=== PATIENT | male | born 1980 | race African-American/Black ===

== ENCOUNTER → 2016-11-27 | Outpatient (CLI) | payer MEDICAID ==
[2016-11-27 09:56] LABS: ABSOLUTE EOSINOPHILS # (AUTO) 0.4 10^3/uL (0.0-0.6); ABSOLUTE LYMPHOCYTES (AUTO) 2.7 10^3/uL (0.5-4.7); ABSOLUTE MONOCYTES (AUTO) 0.7 10^3/uL (0.1-1.4); ABSOLUTE NEUT (AUTO) 5.4 10^3/uL (1.7-8.2); BASOPHILS % (AUTO) 0.3 % (0-2); EOSINOPHILS % (AUTO) 4.1 % (0-6); HEMATOCRIT 44.4 % (37.9-51.0); HEMOGLOBIN 14.3 g/dL (13.5-17.0); HGB HCT DIFFERENCE -1.5; LYMPHOCYTES % (AUTO) 29.1 % (13-45); MEAN CORPUSCULAR HEMOGLOBIN 24.7 pg (27.0-33.4); MEAN CORPUSCULAR HGB CONC 32.1 g/dL (32.0-36.0); MEAN CORPUSCULAR VOLUME 77 fl (80-97); MONOCYTES % (AUTO) 7.3 % (3-13); RED BLOOD COUNT 5.77 10^6/uL (4.35-5.55); RED CELL DISTRIBUTION WIDTH 14.5 % (11.5-14.0); SEGMENTED NEUTROPHILS % (AUTO) 59.2 % (42-78); WHITE BLOOD COUNT 9.2 10^3/uL (4.0-10.5)
[2016-11-27 09:56] LABS: APPEARANCE,URINE CLEAR; BILIRUBIN,URINE NEGATIVE (NEGATIVE); GLUCOSE, URINE NEGATIVE (NEGATIVE); KETONES,URINE TRACE mg/dL (NEGATIVE); LEUKOCYTE ESTERASE,URINE NEGATIVE (NEGATIVE); NITRITE,URINE NEGATIVE (NEGATIVE); PROTEIN,URINE NEGATIVE (NEGATIVE); URINE SPECIFIC GRAVITY 1.013; UROBILINOGEN,URINE NEGATIVE mg/dL (<2.0)
[2016-11-27 10:18] LABS: ALANINE AMINOTRANSFERASE 87 U/L (21-72); ALBUMIN 4.6 g/dL (3.5-5.0); ALKALINE PHOSPHATASE 84 U/L (38-126); ANION GAP 14 (5-19); ASPARTATE AMINO TRANSFERASE 40 U/L (17-59); BILIRUBIN,TOTAL 0.7 mg/dL (0.2-1.3); BLOOD UREA NITROGEN 15 mg/dL (7-20); CALCIUM 9.5 mg/dL (8.4-10.2); CARBON DIOXIDE 25 mmol/L (22-30); CHLORIDE 104 mmol/L (98-107); CHOLESTEROL 111.09 mg/dL (0-200); CREATININE RESULT 1.02 mg/dL (0.52-1.25); Direct HDL 27 mg/dL (>40); GLUCOSE 191 mg/dL (75-110); PHOSPHORUS 3.9 mg/dL (2.5-4.5); POTASSIUM 4.8 mmol/L (3.6-5.0); SODIUM 143.4 mmol/L (137-145); TOTAL PROTEIN 7.7 g/dL (6.3-8.2); TRIGLYCERIDES 92 mg/dL (<150)
[2016-11-27 10:29] LABS: DIRECT LDL 68 mg/dL (<100)
== END ==
LOC: OD 08:29
DX: R06.02 Shortness of breath (principal); Z51.81 Encounter for therapeutic drug level monitoring; D57.3 Sickle-cell trait; E03.9 Hypothyroidism, unspecified
CPT/HCPCS: 36415; 71020; 80053; 80061; 81001; 82652; 83036; 83970; 84100; 84443; 85025; 85660

== ENCOUNTER → 2016-12-31 | Outpatient (CLI) | payer MEDICAID | LOC: OD 08:36 | DX: K75.9 Inflammatory liver disease, unspecified (principal) | CPT/HCPCS: 36415; 80074 ==

== ENCOUNTER → 2017-05-27 | Outpatient (CLI) | payer MEDICAID ==
[2017-05-27 08:51] LABS: ABSOLUTE BASOPHILS # (AUTO) 0.1 10^3/uL (0.0-0.2); ABSOLUTE EOSINOPHILS # (AUTO) 0.2 10^3/uL (0.0-0.6); ABSOLUTE LYMPHOCYTES (AUTO) 1.9 10^3/uL (0.5-4.7); ABSOLUTE MONOCYTES (AUTO) 0.7 10^3/uL (0.1-1.4); ABSOLUTE NEUT (AUTO) 7.6 10^3/uL (1.7-8.2); BASOPHILS % (AUTO) 0.5 % (0-2); EOSINOPHILS % (AUTO) 1.6 % (0-6); HEMATOCRIT 41.9 % (37.9-51.0); HEMOGLOBIN 13.9 g/dL (13.5-17.0); HGB HCT DIFFERENCE -0.2; LYMPHOCYTES % (AUTO) 18.2 % (13-45); MEAN CORPUSCULAR HEMOGLOBIN 25.5 pg (27.0-33.4); MEAN CORPUSCULAR HGB CONC 33.3 g/dL (32.0-36.0); MEAN CORPUSCULAR VOLUME 77 fl (80-97); MONOCYTES % (AUTO) 6.5 % (3-13); RED BLOOD COUNT 5.46 10^6/uL (4.35-5.55); RED CELL DISTRIBUTION WIDTH 14.7 % (11.5-14.0); SEGMENTED NEUTROPHILS % (AUTO) 73.2 % (42-78); WHITE BLOOD COUNT 10.4 10^3/uL (4.0-10.5)
[2017-05-27 09:16] LABS: ALANINE AMINOTRANSFERASE 68 U/L (21-72); ALBUMIN 4.6 g/dL (3.5-5.0); ALKALINE PHOSPHATASE 89 U/L (38-126); ANION GAP 16 (5-19); ASPARTATE AMINO TRANSFERASE 32 U/L (17-59); BILIRUBIN,DIRECT 0.4 mg/dL (0.0-0.4); BILIRUBIN,TOTAL 0.6 mg/dL (0.2-1.3); BLOOD UREA NITROGEN 14 mg/dL (7-20); CALCIUM 9.8 mg/dL (8.4-10.2); CARBON DIOXIDE 26 mmol/L (22-30); CHLORIDE 103 mmol/L (98-107); CREATININE RESULT 1.04 mg/dL (0.52-1.25); Direct HDL 35 mg/dL (>40); GLUCOSE 130 mg/dL (75-110); POTASSIUM 4.5 mmol/L (3.6-5.0); SODIUM 144.7 mmol/L (137-145); TRIGLYCERIDES 88 mg/dL (<150)
[2017-05-27 09:27] LABS: DIRECT LDL 88 mg/dL (<100)
[2017-05-28 10:38] LABS: CREATININE URINE 232.3 mg/dL (Not Estab.); MICROALBUMIN URINE 23.3 ug/mL (Not Estab.)
== END ==
LOC: OD 07:46
PROVIDERS: ATTEND Family Medicine Geriatric Medicine
DX: E03.9 Hypothyroidism, unspecified (principal); E11.9 Type 2 diabetes mellitus without complications; R74.8 Abnormal levels of other serum enzymes; E78.5 Hyperlipidemia, unspecified; E55.9 Vitamin D deficiency, unspecified; Z79.899 Other long term (current) drug therapy
CPT/HCPCS: 36415; 80053; 80061; 82043; 82306; 82570; 83036; 84443; 85025

== ENCOUNTER → 2017-07-08 | Outpatient (CLI) | payer MEDICAID ==
[2017-07-08 08:26] LABS: ABSOLUTE BASOPHILS # (AUTO) 0.1 10^3/uL (0.0-0.2); ABSOLUTE EOSINOPHILS # (AUTO) 0.3 10^3/uL (0.0-0.6); ABSOLUTE LYMPHOCYTES (AUTO) 2.5 10^3/uL (0.5-4.7); ABSOLUTE MONOCYTES (AUTO) 0.9 10^3/uL (0.1-1.4); ABSOLUTE NEUT (AUTO) 7.2 10^3/uL (1.7-8.2); BASOPHILS % (AUTO) 0.5 % (0-2); EOSINOPHILS % (AUTO) 2.5 % (0-6); HEMATOCRIT 44.2 % (37.9-51.0); HEMOGLOBIN 14.3 g/dL (13.5-17.0); HGB HCT DIFFERENCE -1.3; LYMPHOCYTES % (AUTO) 22.9 % (13-45); MEAN CORPUSCULAR HEMOGLOBIN 25.4 pg (27.0-33.4); MEAN CORPUSCULAR HGB CONC 32.4 g/dL (32.0-36.0); MEAN CORPUSCULAR VOLUME 78 fl (80-97); MONOCYTES % (AUTO) 7.8 % (3-13); RED BLOOD COUNT 5.64 10^6/uL (4.35-5.55); RED CELL DISTRIBUTION WIDTH 14.6 % (11.5-14.0); SEGMENTED NEUTROPHILS % (AUTO) 66.3 % (42-78); WHITE BLOOD COUNT 10.9 10^3/uL (4.0-10.5)
[2017-07-09 11:40] LABS: CREATININE URINE 195.2 mg/dL (Not Estab.); MICROALBUMIN URINE 8.6 ug/mL (Not Estab.)
== END ==
LOC: OD 07:07
PROVIDERS: ATTEND Family Medicine Geriatric Medicine
DX: E11.9 Type 2 diabetes mellitus without complications (principal); E03.9 Hypothyroidism, unspecified; Z79.899 Other long term (current) drug therapy
CPT/HCPCS: 36415; 82043; 82570; 83036; 85025

== ENCOUNTER → 2017-08-09 | Outpatient (CLI) | payer MEDICAID ==
[2017-08-09 08:29] LABS: ABSOLUTE BASOPHILS # (AUTO) 0.1 10^3/uL (0.0-0.2); ABSOLUTE EOSINOPHILS # (AUTO) 0.1 10^3/uL (0.0-0.6); ABSOLUTE LYMPHOCYTES (AUTO) 1.5 10^3/uL (0.5-4.7); ABSOLUTE MONOCYTES (AUTO) 0.6 10^3/uL (0.1-1.4); ABSOLUTE NEUT (AUTO) 5.7 10^3/uL (1.7-8.2); BASOPHILS % (AUTO) 0.7 % (0-2); EOSINOPHILS % (AUTO) 1.7 % (0-6); HEMATOCRIT 42.4 % (37.9-51.0); HEMOGLOBIN 14.3 g/dL (13.5-17.0); HGB HCT DIFFERENCE 0.5; LYMPHOCYTES % (AUTO) 18.3 % (13-45); MEAN CORPUSCULAR HEMOGLOBIN 25.8 pg (27.0-33.4); MEAN CORPUSCULAR HGB CONC 33.8 g/dL (32.0-36.0); MEAN CORPUSCULAR VOLUME 76 fl (80-97); MONOCYTES % (AUTO) 7.4 % (3-13); RED BLOOD COUNT 5.55 10^6/uL (4.35-5.55); RED CELL DISTRIBUTION WIDTH 14.9 % (11.5-14.0); SEGMENTED NEUTROPHILS % (AUTO) 71.9 % (42-78)
== END ==
LOC: OD 07:02
PROVIDERS: ATTEND Family Medicine Geriatric Medicine
DX: D72.829 Elevated white blood cell count, unspecified (principal)
CPT/HCPCS: 36415; 85025

== ENCOUNTER → 2018-01-13 | Outpatient (CLI) | payer MEDICAID ==
[2018-01-13 10:10] LABS: ABSOLUTE BASOPHILS # (AUTO) 0.1 10^3/uL (0.0-0.2); ABSOLUTE EOSINOPHILS # (AUTO) 0.3 10^3/uL (0.0-0.6); ABSOLUTE LYMPHOCYTES (AUTO) 2.5 10^3/uL (0.5-4.7); ABSOLUTE MONOCYTES (AUTO) 0.8 10^3/uL (0.1-1.4); ABSOLUTE NEUT (AUTO) 6.2 10^3/uL (1.7-8.2); BASOPHILS % (AUTO) 0.7 % (0-2); EOSINOPHILS % (AUTO) 3.1 % (0-6); HEMATOCRIT 43.9 % (37.9-51.0); HEMOGLOBIN 14.4 g/dL (13.5-17.0); MEAN CORPUSCULAR HEMOGLOBIN 25.1 pg (27.0-33.4); MEAN CORPUSCULAR HGB CONC 32.8 g/dL (32.0-36.0); MEAN CORPUSCULAR VOLUME 76 fl (80-97); MONOCYTES % (AUTO) 8.5 % (3-13); PLATELET COUNT 456 10^3/uL (150-450); RED BLOOD COUNT 5.75 10^6/uL (4.35-5.55); SEGMENTED NEUTROPHILS % (AUTO) 62.7 % (42-78); TOTAL CELLS COUNTED % (AUTO) 100 %; WHITE BLOOD COUNT 9.9 10^3/uL (4.0-10.5)
[2018-01-13 10:42] LABS: ALANINE AMINOTRANSFERASE 45 U/L (21-72); ANION GAP 11 (5-19); ASPARTATE AMINO TRANSFERASE 21 U/L (17-59); BLOOD UREA NITROGEN 13 mg/dL (7-20); CALCIUM 10.1 mg/dL (8.4-10.2); CARBON DIOXIDE 29 mmol/L (22-30); CHLORIDE 102 mmol/L (98-107); CHOLESTEROL 147.11 mg/dL (0-200); GLUCOSE 120 mg/dL (75-110); POTASSIUM 4.7 mmol/L (3.6-5.0); SODIUM 141.8 mmol/L (137-145); TRIGLYCERIDES 67 mg/dL (<150)
[2018-01-13 10:54] LABS: DIRECT LDL 97 mg/dL (<100)
[2018-01-14 12:39] LABS: CREATININE URINE 133.9 mg/dL (Not Estab.); MICROALBUMIN URINE <3.0 ug/mL (Not Estab.)
== END ==
LOC: OD 08:29
PROVIDERS: ATTEND Family Medicine Geriatric Medicine
DX: E03.9 Hypothyroidism, unspecified (principal); E11.9 Type 2 diabetes mellitus without complications; E78.5 Hyperlipidemia, unspecified; D57.3 Sickle-cell trait; D72.829 Elevated white blood cell count, unspecified
CPT/HCPCS: 36415; 80048; 80061; 82043; 82570; 83036; 84443; 84450; 84460; 85025

== ENCOUNTER → 2018-03-03 | Outpatient (CLI) | payer MEDICAID ==
--- NOTE | 2018-03-03 15:00 | RADIOLOGY REPORT (SQ) ---
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 TECHNIQUE: Multiplanar imaging includes noncontrasted T1, T2, FLAIR, diffusion with ADC map and post gadolinium contrast T1 sequences. Images stored on PACS. Additional thin section imaging through the orbits was performed including axial and coronal fat-sat T2, axial and coronal T1 precontrast and T1 fat-sat postcontrast imaging to include the optic nerves and globes. CONTRAST TYPE AND DOSE: 20 mL Multihance. RENAL FUNCTION: GFR > 60. LIMITATIONS: None. FINDINGS: ANATOMY: No developmental anomalies. Normal vascular flow voids. Pituitary fossa normal. CSF SPACES: Normal in size and contour. No hemorrhage. CEREBRUM AND CEREBELLUM: Extensive white matter lesions are present diagnostic for demyelinating dise ase. These involve the left middle cerebellar peduncle, posterior left mario, right cerebellar white matter, bilateral temporal frontal parietal and occipital white matter, and corpus callosum. There is no MR evidence of acute ischemic change, acute intracranial hemorrhage, mass effect or shift . No abnormal contrast enhancement. Cerebellopontine angles, internal auditory canals, and inner ear structures are unremarkable. DIFFUSION IMAGING: Negative for acute or subacute infarction. ORBITS: There is optic nerve atrophy on the right side, with mild increased right optic nerve intrins ic signal from demyelinating disease. Left optic nerve unremarkable. Globes are symmetric in size, no proptosis. No intra or extraconal orbital masses or enhancement. PARANASAL SINUSES: No fluid levels. Mucosa normal. OTHER: No other significant finding. IMPRESSION: Multiple sclerosis with fairly heavy plaque burden throughout the brain parenchyma. 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 TECHNICAL DOCUMENTATION: JOB ID: [id number] [employer]- All Rights Reserved Reading location - IP/workstation name: [facility]
== END ==
LOC: RAD 10:03
PROVIDERS: ATTEND Ophthalmology
DX: H47.211 Primary optic atrophy, right eye (principal)
CPT/HCPCS: 70553; A9577

== ENCOUNTER → 2018-10-20 | Outpatient (CLI) | payer MEDICAID ==
[2018-10-20 09:52] LABS: ABSOLUTE BASOPHILS # (AUTO) 0.1 10^3/uL (0.0-0.2); ABSOLUTE EOSINOPHILS # (AUTO) 0.4 10^3/uL (0.0-0.6); ABSOLUTE LYMPHOCYTES (AUTO) 2.5 10^3/uL (0.5-4.7); ABSOLUTE MONOCYTES (AUTO) 0.9 10^3/uL (0.1-1.4); ABSOLUTE NEUT (AUTO) 7.1 10^3/uL (1.7-8.2); BASOPHILS % (AUTO) 0.9 % (0-2); EOSINOPHILS % (AUTO) 3.3 % (0-6); HEMATOCRIT 42.1 % (37.9-51.0); HEMOGLOBIN 14.1 g/dL (13.5-17.0); LYMPHOCYTES % (AUTO) 22.8 % (13-45); MEAN CORPUSCULAR HEMOGLOBIN 25.6 pg (27.0-33.4); MEAN CORPUSCULAR HGB CONC 33.6 g/dL (32.0-36.0); MEAN CORPUSCULAR VOLUME 76 fl (80-97); PLATELET COUNT 411 10^3/uL (150-450); RED BLOOD COUNT 5.51 10^6/uL (4.35-5.55); RED CELL DISTRIBUTION WIDTH 14.2 % (11.5-14.0); TOTAL CELLS COUNTED % (AUTO) 100 %; WHITE BLOOD COUNT 10.9 10^3/uL (4.0-10.5)
[2018-10-20 10:02] LABS: ALANINE AMINOTRANSFERASE 30 U/L (21-72); ALBUMIN 4.2 g/dL (3.5-5.0); ALKALINE PHOSPHATASE 78 U/L (38-126); ANION GAP 10 (5-19); ASPARTATE AMINO TRANSFERASE 19 U/L (17-59); BILIRUBIN,DIRECT 0.2 mg/dL (0.0-0.4); BILIRUBIN,TOTAL 0.6 mg/dL (0.2-1.3); BLOOD UREA NITROGEN 14 mg/dL (7-20); CALCIUM 9.6 mg/dL (8.4-10.2); CARBON DIOXIDE 28 mmol/L (22-30); CHLORIDE 103 mmol/L (98-107); GLUCOSE 130 mg/dL (75-110); POTASSIUM 4.2 mmol/L (3.6-5.0); SODIUM 141.4 mmol/L (137-145); TOTAL PROTEIN 7.4 g/dL (6.3-8.2); TRIGLYCERIDES 64 mg/dL (<150)
[2018-10-20 10:13] LABS: DIRECT LDL 75 mg/dL (<100)
[2018-10-21 12:38] LABS: CREATININE URINE 166.2 mg/dL (Not Estab.); MICROALBUMIN URINE 3.7 ug/mL (Not Estab.)
== END ==
LOC: OD 08:51
PROVIDERS: ATTEND Family Medicine Geriatric Medicine
DX: E03.9 Hypothyroidism, unspecified (principal); E11.9 Type 2 diabetes mellitus without complications; E78.5 Hyperlipidemia, unspecified
CPT/HCPCS: 36415; 80053; 80061; 82043; 82570; 83036; 84443; 85025

== ENCOUNTER → 2018-10-27 | Outpatient (CLI) | payer MEDICAID ==
[2018-10-27 10:36] LABS: ABSOLUTE BASOPHILS # (AUTO) 0.1 10^3/uL (0.0-0.2); ABSOLUTE EOSINOPHILS # (AUTO) 0.3 10^3/uL (0.0-0.6); ABSOLUTE MONOCYTES (AUTO) 0.9 10^3/uL (0.1-1.4); ABSOLUTE NEUT (AUTO) 8.7 10^3/uL (1.7-8.2); BASOPHILS % (AUTO) 0.4 % (0-2); EOSINOPHILS % (AUTO) 2.1 % (0-6); HEMOGLOBIN 14.9 g/dL (13.5-17.0); LYMPHOCYTES % (AUTO) 23.2 % (13-45); MEAN CORPUSCULAR HEMOGLOBIN 25.4 pg (27.0-33.4); MEAN CORPUSCULAR HGB CONC 33.2 g/dL (32.0-36.0); MEAN CORPUSCULAR VOLUME 77 fl (80-97); MONOCYTES % (AUTO) 6.8 % (3-13); PLATELET COUNT 477 10^3/uL (150-450); RED BLOOD COUNT 5.87 10^6/uL (4.35-5.55); RED CELL DISTRIBUTION WIDTH 14.2 % (11.5-14.0); SEGMENTED NEUTROPHILS % (AUTO) 67.5 % (42-78); TOTAL CELLS COUNTED % (AUTO) 100 %
== END ==
LOC: OD 08:46
PROVIDERS: ATTEND Family Medicine Geriatric Medicine
DX: R79.89 Other specified abnormal findings of blood chemistry (principal); E11.9 Type 2 diabetes mellitus without complications; E78.5 Hyperlipidemia, unspecified; E03.9 Hypothyroidism, unspecified; E55.9 Vitamin D deficiency, unspecified; E66.01 Morbid (severe) obesity due to excess calories; D57.3 Sickle-cell trait; D72.828 Other elevated white blood cell count; F70 Mild intellectual disabilities
CPT/HCPCS: 36415; 85025

== ENCOUNTER → 2019-02-16 | Outpatient (CLI) | payer MEDICAID ==
[2019-02-16 09:56] LABS: ABSOLUTE EOSINOPHILS # (AUTO) 0.3 10^3/uL (0.0-0.6); ABSOLUTE LYMPHOCYTES (AUTO) 2.5 10^3/uL (0.5-4.7); ABSOLUTE MONOCYTES (AUTO) 0.7 10^3/uL (0.1-1.4); ABSOLUTE NEUT (AUTO) 5.2 10^3/uL (1.7-8.2); BASOPHILS % (AUTO) 0.5 % (0-2); EOSINOPHILS % (AUTO) 3.1 % (0-6); HEMATOCRIT 44.7 % (37.9-51.0); HEMOGLOBIN 14.9 g/dL (13.5-17.0); LYMPHOCYTES % (AUTO) 28.3 % (13-45); MEAN CORPUSCULAR HEMOGLOBIN 25.5 pg (27.0-33.4); MEAN CORPUSCULAR HGB CONC 33.3 g/dL (32.0-36.0); MEAN CORPUSCULAR VOLUME 77 fl (80-97); MONOCYTES % (AUTO) 8.5 % (3-13); PLATELET COUNT 445 10^3/uL (150-450); RED BLOOD COUNT 5.84 10^6/uL (4.35-5.55); SEGMENTED NEUTROPHILS % (AUTO) 59.6 % (42-78); TOTAL CELLS COUNTED % (AUTO) 100 %; WHITE BLOOD COUNT 8.8 10^3/uL (4.0-10.5)
[2019-02-16 10:21] LABS: ALANINE AMINOTRANSFERASE 40 U/L (21-72); ANION GAP 10 (5-19); BLOOD UREA NITROGEN 13 mg/dL (7-20); CARBON DIOXIDE 28 mmol/L (22-30); CHLORIDE 102 mmol/L (98-107); CHOLESTEROL 143.97 mg/dL (0-200); GLUCOSE 274 mg/dL (75-110); POTASSIUM 4.6 mmol/L (3.6-5.0); SODIUM 139.9 mmol/L (137-145); TRIGLYCERIDES 109 mg/dL (<150)
[2019-02-16 10:33] LABS: DIRECT LDL 99 mg/dL (<100)
[2019-02-18 09:37] LABS: CREATININE URINE 55.7 mg/dL (Not Estab.); MICROALBUMIN URINE <3.0 ug/mL (Not Estab.)
== END ==
LOC: OD 08:31
PROVIDERS: ATTEND Family Medicine Geriatric Medicine
DX: E11.9 Type 2 diabetes mellitus without complications (principal); E03.9 Hypothyroidism, unspecified; E78.5 Hyperlipidemia, unspecified; G35 Multiple sclerosis; Z79.899 Other long term (current) drug therapy
CPT/HCPCS: 36415; 80048; 80061; 82043; 82570; 83036; 84443; 84460; 85025

== ENCOUNTER → 2019-03-16 | Outpatient (CLI) | payer MEDICAID ==
[2019-03-16 09:52] LABS: ALANINE AMINOTRANSFERASE 42 U/L (21-72); ANION GAP 12 (5-19); BLOOD UREA NITROGEN 15 mg/dL (7-20); CALCIUM 9.8 mg/dL (8.4-10.2); CARBON DIOXIDE 27 mmol/L (22-30); CHLORIDE 102 mmol/L (98-107); CHOLESTEROL 117.17 mg/dL (0-200); GLUCOSE 195 mg/dL (75-110); POTASSIUM 4.9 mmol/L (3.6-5.0); SODIUM 141.1 mmol/L (137-145); TRIGLYCERIDES 73 mg/dL (<150)
[2019-03-16 10:10] LABS: DIRECT LDL 84 mg/dL (<100)
== END ==
LOC: OD 08:24
PROVIDERS: ATTEND Family Medicine Geriatric Medicine
DX: E03.9 Hypothyroidism, unspecified (principal); E78.5 Hyperlipidemia, unspecified; E11.9 Type 2 diabetes mellitus without complications; G35 Multiple sclerosis; Z79.899 Other long term (current) drug therapy
CPT/HCPCS: 36415; 80048; 80061; 83036; 84443; 84460

== ENCOUNTER → 2019-05-11 | Outpatient (CLI) | payer MEDICAID | LOC: OD 08:06 | PROVIDERS: ATTEND Family Medicine Geriatric Medicine | DX: E03.9 Hypothyroidism, unspecified (principal) | CPT/HCPCS: 36415; 84443 ==

== ENCOUNTER → 2019-09-14 | Outpatient (CLI) | payer MEDICAID ==
[2019-09-14 09:02] LABS: CHOLESTEROL 130.46 mg/dL (0-200); DIRECT LDL 87 mg/dL (<100); TRIGLYCERIDES 83 mg/dL (<150)
[2019-09-15 13:37] LABS: CREATININE URINE 182.4 mg/dL (Not Estab.); MICROALBUMIN URINE 10.3 ug/mL (Not Estab.)
== END ==
LOC: OD 07:42
PROVIDERS: ATTEND Family Medicine Geriatric Medicine
DX: E03.9 Hypothyroidism, unspecified (principal); I10 Essential (primary) hypertension; E78.5 Hyperlipidemia, unspecified; Z79.899 Other long term (current) drug therapy
CPT/HCPCS: 36415; 80061; 82043; 82570; 83036; 84443

== ENCOUNTER → 2019-11-02 | Outpatient (CLI) | payer MEDICAID ==
[2019-11-02 09:27] LABS: ANION GAP 12 (5-19); ASPARTATE AMINO TRANSFERASE 25 U/L (17-59); BLOOD UREA NITROGEN 13 mg/dL (7-20); CALCIUM 9.9 mg/dL (8.4-10.2); CARBON DIOXIDE 30 mmol/L (22-30); CHLORIDE 100 mmol/L (98-107); GLUCOSE 95 mg/dL (75-110); POTASSIUM 4.7 mmol/L (3.6-5.0)
== END ==
LOC: OD 07:56
PROVIDERS: ATTEND Family Medicine Geriatric Medicine
DX: E03.9 Hypothyroidism, unspecified (principal); E11.9 Type 2 diabetes mellitus without complications; E78.5 Hyperlipidemia, unspecified; Z79.899 Other long term (current) drug therapy
CPT/HCPCS: 36415; 80048; 84443; 84450

== ENCOUNTER → 2020-02-01 | Outpatient (CLI) | payer MEDICAID ==
[2020-02-01 08:58] LABS: ABSOLUTE BASOPHILS # (AUTO) 0.1 10^3/uL (0.0-0.2); ABSOLUTE EOSINOPHILS # (AUTO) 0.5 10^3/uL (0.0-0.6); ABSOLUTE LYMPHOCYTES (AUTO) 2.4 10^3/uL (0.5-4.7); ABSOLUTE MONOCYTES (AUTO) 0.8 10^3/uL (0.1-1.4); BASOPHILS % (AUTO) 0.7 % (0-2); HEMOGLOBIN 15.1 g/dL (13.5-17.0); TOTAL CELLS COUNTED % (AUTO) 100 %
[2020-02-01 09:09] LABS: ABSOLUTE NEUT (AUTO) 6.2 10^3/uL (1.7-8.2); EOSINOPHILS % (AUTO) 5.2 % (0-6); HEMATOCRIT 44.8 % (37.9-51.0); LYMPHOCYTES % (AUTO) 24.2 % (13-45); MEAN CORPUSCULAR HEMOGLOBIN 25.6 pg (27.0-33.4); MEAN CORPUSCULAR HGB CONC 33.8 g/dL (32.0-36.0); MEAN CORPUSCULAR VOLUME 76 fl (80-97); PLATELET COUNT 476 10^3/uL (150-450); RED BLOOD COUNT 5.91 10^6/uL (4.35-5.55); RED CELL DISTRIBUTION WIDTH 14.7 % (11.5-14.0); SEGMENTED NEUTROPHILS % (AUTO) 61.9 % (42-78); WHITE BLOOD COUNT 10.1 10^3/uL (4.0-10.5)
[2020-02-01 09:18] LABS: CHOLESTEROL 131.36 mg/dL (0-200); TRIGLYCERIDES 106 mg/dL (<150)
[2020-02-01 09:29] LABS: DIRECT LDL 92 mg/dL (<100)
[2020-02-02 07:37] LABS: CREATININE URINE 149.2 mg/dL (Not Estab.); MICROALBUMIN URINE 4.7 ug/mL (Not Estab.)
== END ==
LOC: OD 08:18
PROVIDERS: ATTEND Family Medicine Geriatric Medicine
DX: E11.9 Type 2 diabetes mellitus without complications (principal); E78.5 Hyperlipidemia, unspecified; Z79.899 Other long term (current) drug therapy
CPT/HCPCS: 36415; 80061; 82043; 82570; 83036; 84460; 85025

== ENCOUNTER → 2020-05-09 | Outpatient (CLI) | payer MEDICAID ==
[2020-05-09 08:35] LABS: ABSOLUTE BASOPHILS # (AUTO) 0.1 10^3/uL (0.0-0.2); ABSOLUTE EOSINOPHILS # (AUTO) 0.2 10^3/uL (0.0-0.6); ABSOLUTE LYMPHOCYTES (AUTO) 1.2 10^3/uL (0.5-4.7); ABSOLUTE MONOCYTES (AUTO) 0.6 10^3/uL (0.1-1.4); ABSOLUTE NEUT (AUTO) 7.6 10^3/uL (1.7-8.2); BASOPHILS % (AUTO) 0.5 % (0-2); EOSINOPHILS % (AUTO) 2.5 % (0-6); HEMATOCRIT 42.4 % (37.9-51.0); HEMOGLOBIN 14.2 g/dL (13.5-17.0); LYMPHOCYTES % (AUTO) 12.6 % (13-45); MEAN CORPUSCULAR HEMOGLOBIN 25.4 pg (27.0-33.4); MEAN CORPUSCULAR HGB CONC 33.6 g/dL (32.0-36.0); MEAN CORPUSCULAR VOLUME 76 fl (80-97); MONOCYTES % (AUTO) 6.5 % (3-13); PLATELET COUNT 470 10^3/uL (150-450); RED CELL DISTRIBUTION WIDTH 14.6 % (11.5-14.0); SEGMENTED NEUTROPHILS % (AUTO) 77.9 % (42-78); TOTAL CELLS COUNTED % (AUTO) 100 %; WHITE BLOOD COUNT 9.7 10^3/uL (4.0-10.5)
== END ==
LOC: OD 08:08
PROVIDERS: ATTEND Family Medicine Geriatric Medicine
DX: Z79.899 Other long term (current) drug therapy (principal)
CPT/HCPCS: 36415; 84443; 85025

== ENCOUNTER → 2020-07-04 | Outpatient (CLI) | payer MEDICAID ==
[2020-07-04 09:55] LABS: ANION GAP 11 (5-19); BLOOD UREA NITROGEN 13 mg/dL (7-20); CALCIUM 9.6 mg/dL (8.4-10.2); CARBON DIOXIDE 29 mmol/L (22-30); CHLORIDE 101 mmol/L (98-107); CHOLESTEROL 140.97 mg/dL (0-200); GLUCOSE 110 mg/dL (75-110); POTASSIUM 4.5 mmol/L (3.6-5.0); TRIGLYCERIDES 76 mg/dL (<150)
[2020-07-04 10:06] LABS: DIRECT LDL 100 mg/dL (<100)
[2020-07-05 18:22] LABS: CREATININE URINE 113.4 mg/dL (Not Estab.); MICROALBUMIN URINE 3.7 ug/mL (Not Estab.)
== END ==
LOC: OD 08:56
PROVIDERS: ATTEND Family Medicine Geriatric Medicine
DX: E11.9 Type 2 diabetes mellitus without complications (principal); E78.5 Hyperlipidemia, unspecified; G35 Multiple sclerosis; Z79.899 Other long term (current) drug therapy
CPT/HCPCS: 36415; 80048; 80061; 82043; 82570; 83036; 84460

== ENCOUNTER → 2020-07-22 | Outpatient (CLI) | payer MEDICAID ==
[2020-07-22 10:37] LABS: ABSOLUTE BASOPHILS # (AUTO) 0.1 10^3/uL (0.0-0.2); ABSOLUTE EOSINOPHILS # (AUTO) 0.3 10^3/uL (0.0-0.6); ABSOLUTE LYMPHOCYTES (AUTO) 1.7 10^3/uL (0.5-4.7); BASOPHILS % (AUTO) 0.5 % (0-2); EOSINOPHILS % (AUTO) 3.1 % (0-6); HEMATOCRIT 43.9 % (37.9-51.0); HEMOGLOBIN 14.6 g/dL (13.5-17.0); LYMPHOCYTES % (AUTO) 17.3 % (13-45); MEAN CORPUSCULAR HEMOGLOBIN 25.4 pg (27.0-33.4); MEAN CORPUSCULAR HGB CONC 33.3 g/dL (32.0-36.0); MEAN CORPUSCULAR VOLUME 76 fl (80-97); MONOCYTES % (AUTO) 9.4 % (3-13); PLATELET COUNT 487 10^3/uL (150-450); RED BLOOD COUNT 5.77 10^6/uL (4.35-5.55); RED CELL DISTRIBUTION WIDTH 14.2 % (11.5-14.0); SEGMENTED NEUTROPHILS % (AUTO) 69.7 % (42-78); TOTAL CELLS COUNTED % (AUTO) 100 %; WHITE BLOOD COUNT 10.1 10^3/uL (4.0-10.5)
[2020-07-22 11:03] LABS: ALBUMIN 4.7 g/dL (3.5-5.0); ALKALINE PHOSPHATASE 78 U/L (38-126); ANION GAP 13 (5-19); ASPARTATE AMINO TRANSFERASE 29 U/L (17-59); BILIRUBIN,DIRECT 0.4 mg/dL (0.0-0.4); BILIRUBIN,TOTAL 0.6 mg/dL (0.2-1.3); BLOOD UREA NITROGEN 16 mg/dL (7-20); CALCIUM 9.6 mg/dL (8.4-10.2); CARBON DIOXIDE 26 mmol/L (22-30); CHLORIDE 102 mmol/L (98-107); GLUCOSE 103 mg/dL (75-110); POTASSIUM 4.3 mmol/L (3.6-5.0)
== END ==
LOC: OD 08:38
PROVIDERS: ATTEND Nurse Practitioner Family
DX: G35 Multiple sclerosis (principal)
CPT/HCPCS: 36415; 80053; 85025

== ENCOUNTER → 2020-08-29 | Outpatient (CLI) | payer MEDICAID ==
[2020-08-29 09:29] LABS: ASPARTATE AMINO TRANSFERASE 25 U/L (17-59); CHOLESTEROL 82.02 mg/dL (0-200); TRIGLYCERIDES 89 mg/dL (<150)
[2020-08-29 09:40] LABS: DIRECT LDL 37 mg/dL (<100)
== END ==
LOC: OD 08:10
PROVIDERS: ATTEND Family Medicine Geriatric Medicine
DX: E78.5 Hyperlipidemia, unspecified (principal); E03.9 Hypothyroidism, unspecified; Z79.899 Other long term (current) drug therapy
CPT/HCPCS: 36415; 80061; 84443; 84450